=== PATIENT | female | born 1975 | race Caucasian/White ===

== ENCOUNTER 2019-12-16 12:09 | Outpatient (CLI) | payer BC, SELFPAY ==
--- NOTE | ~2019-12-16 | MM_ITS ---
EXAMINATION: MM diagnostic maximiliano RT w chauncey HISTORY: Follow-up right breast asymmetry TECHNIQUE: Additional 3-D tomosynthesis images of the right breast were performed and synthetic 2-D i mages were generated. CAD analysis was submitted and interpreted. COMPARISON: Comparison to multiple prior studies sequentially, with oldest reviewed study dated 10/02. FINDINGS: Breast composed of scattered areas of fibroglandular density. The right breast is stable wi thout evidence for malignancy. Asymmetries in the lower inner quadrant of the right breast are stable and less dense with spot compression views, compatible with superimposed fibroglandular tissue. IMPRESSION: 1. No mammographic evidence for malignancy in the right breast. 2. Routine yearly screening mammogram and regular clinical breast examination are recommended. BI-RADS Category 1: Negative Reviewed, dictated and finalized at location A. IMPRESSION: 1. No mammographic evidence for malignancy in the right breast. 2. Routine yearly screening mammogram and regular clinical breast examination a re recommended. BI-RADS Category 1: Negative
== END 2019-12-16 12:10 | disposition home or self-care (01) ==
LOC: ANHIMG 12:13
PROVIDERS: PCP Obstetrics & Gynecology Gynecology; Visit Provider Obstetrics & Gynecology Gynecology
DX: R92.8 Other abnormal and inconclusive findings on diagnostic imaging of breast (principal)
CPT/HCPCS: 77061; 77065; G0279

== ENCOUNTER → 2020-06-08 18:17 | Outpatient (CLI) | payer BC, SELFPAY ==
--- NOTE | ~2020-06-08 | MM_ITS ---
EXAMINATION: MM screening maximiliano BI w chauncey HISTORY: Screening mammogram TECHNIQUE: Craniocaudal and mediolateral oblique 3-D tomosynthesis images were obtained and synthetic 2-D images were generated. CAD analysis was submitted and interpreted. COMPARISON: 12/16/2019 right diagnostic mammogram 05/28/2019 right diagnostic mammogram and limited right breast ultrasound 05/15/2019, 04/21/2018, 11/17/2014 bilateral digital screening mammogram examinations BREAST PARENCHYMAL COMPOSITION: There are scattered areas of fibroglandular density. FINDINGS: There is no evidence of suspicious mass, calcification, or architectural distortion to sugg est malignancy in either breast. There has been no suspicious interval change. IMPRESSION: 1. No mammographic evidence of malignancy. 2. Recommend routine screening mammography in one year. BI-RADS Category 1: Negative Reviewed, dictated and finalized at location A. MOLOGY TECHNICAL OFFICER
== END ==
PROVIDERS: Visit Provider Nurse Practitioner
DX: Z12.31 Encounter for screening mammogram for malignant neoplasm of breast (principal)
CPT/HCPCS: 77063; 77067

== ENCOUNTER → 2021-07-13 13:53 | Outpatient (CLI) | payer BC, SELFPAY ==
--- NOTE | ~2021-07-13 | MM_ITS ---
EXAMINATION: MM screening [facility] BI w chauncey HISTORY: Screening mammogram TECHNIQUE: Craniocaudal and mediolateral oblique 3-D tomosynthesis images were obtained and synthetic 2-D images were generated. CAD analysis was submitted and interpreted. COMPARISON: 06/08/2020, 12/16/2019, 05/28/2019, 05/15/2019 BREAST PARENCHYMAL COMPOSITION: There are scattered areas of fibroglandular density. FINDINGS: There is no evidence of suspicious mass, calcification, or architectural distortion to sugg est malignancy in either breast. There has been no suspicious interval change. IMPRESSION: 1. No mammographic evidence of malignancy. 2. Recommend routine screening mammography in one year. BI-RADS Category 1: Negative Reviewed, dictated and finalized at location A. TAL TECHNICIAN
== END ==
PROVIDERS: PCP Internal Medicine; Visit Provider Nurse Practitioner
DX: Z12.31 Encounter for screening mammogram for malignant neoplasm of breast (principal)
CPT/HCPCS: 77063; 77067

== ENCOUNTER → 2022-09-04 13:45 | Outpatient (CLI) | payer BC, SELFPAY ==
--- NOTE | ~2022-09-04 | MM_ITS ---
EXAMINATION: MM screening maximiliano BI w chauncey HISTORY: Screening mammogram TECHNIQUE: Craniocaudal and mediolateral oblique 3-D tomosynthesis images were obtained and synthetic 2-D images were generated. CAD analysis was submitted and interpreted. COMPARISON: 07/13/2021, 06/08/2020 bilateral screening mammogram examinations BREAST PARENCHYMAL COMPOSITION: There are scattered areas of fibroglandular density. FINDINGS: There is no evidence of suspicious mass, calcification, or architectural distortion to sugg est malignancy in either breast. There has been no suspicious interval change. IMPRESSION: 1. No mammographic evidence of malignancy. 2. Recommend routine screening mammography in one year. BI-RADS Category 1: Negative Reviewed, dictated and finalized at location A. RNMENT PROPERTY INSPECTOR
== END ==
PROVIDERS: PCP Nurse Practitioner Family; Visit Provider Nurse Practitioner
DX: Z12.31 Encounter for screening mammogram for malignant neoplasm of breast (principal)
CPT/HCPCS: 77063; 77067

== ENCOUNTER → 2023-07-17 13:04 | Outpatient (CLI) | payer BC, SELFPAY ==
--- NOTE | ~2023-07-17 | US_ITS ---
EXAMINATION: US pelvic complete DATE: 07/17/2023 INDICATION: Abnormal uterine bleeding. TECHNIQUE: Multiple transabdominal sonographic images of the pelvis were obtained. COMPARISON: Pelvis ultrasound 11/20/2014 FINDINGS: The uterus measures 10.0 x 4.2 x 5.8 cm. There is no free fluid in the pelvis. The endometrial comple x measures 12 mm in thickness. The right ovary measures 3.0 x 1.7 x 2.0 cm. The left ovary measures 3 .0 x 1.8 x 2.2 cm. There is normal vascular flow in the ovaries. IMPRESSION: 1. Normal pelvis. Reviewed, dictated and finalized at location A. NG PICTURE PRODUCER IMPRESSION: 1. Normal pelvis.
== END ==
PROVIDERS: PCP Nurse Practitioner; Visit Provider Nurse Practitioner
DX: N92.1 Excessive and frequent menstruation with irregular cycle (principal); N93.8 Other specified abnormal uterine and vaginal bleeding
CPT/HCPCS: 76856

== ENCOUNTER 2023-09-09 00:30 | Day surgery (SDC) | payer BC, SELFPAY ==
[2023-09-03 15:08] VITALS: BMI 35.9
--- NOTE | 2023-09-03 15:15 | PC.NURSE ---
Report to the Outpatient Waiting Room, entrance under the green pavilion located off [facility], at time 1030 on date 09/09/23. Planned Procedure Time: 1230. Time changes happen often and if your time is changed the preop area will call you the afternoon before. - You and your visitor will be asked to self-screen and do not enter if you have any COVID symptoms. - A mask is optional within the hospital at this time. Patients may have clear liquids (water, carbonated beverages, clear teas, apple juice) until 3 hours prior to surgery with a maximum of 20 ounces. - No food from midnight until time of surgery Take the following medications with a SIP of water the morning of surgery: BUPROPION, CONTROL, LEVOTHYROXINE DO NOT STOP ANY OF YOUR OTHER PRESCRIPTION MEDICATIONS PRIOR TO SURGERY ?EXCEPT THE FOLLOWING Medications to discontinue per physician: N/A Date to take last dose: N/A Please no make-up, nail latvian, hairspray, perfume, deodorant, or body powder the day of surgery. No jewelry (including any body piercings) or valuables the day of surgery, leave them at home. Please take a shower or bath the night before, or the morning of, surgery with an antibacterial soap. Wear comfortable, loose fitting clothing. - Jewelry must be removed prior to entering the operating room. Rings and piercings that are not removed may be cut off. - The hospital will not accept responsibility for valuables. - Please leave all valuables, including medications, at home the day of surgery. If you are going home after surgery, a licensed septic pump truck driver must drive you home. - NO public transportation without another adult if you receive anesthesia. - We recommend that an adult stay with you for 24 hours following discharge. - We also recommend that you do not drive, make important decision, drink alcoholic beverages, or take any drugs that were not prescribed by your health care provider for at least 24 hours after your discharge time. Follow any additional instructions given to you from your surgeon. If you or anyone in your household have experienced Covid symptoms in the past week, please notify your surgeon or the nurse liaison at the phone number below for possible testing. Telephone instructions given to PT - NAM LAWRENCE and asked if any additional questions and then verbalized understanding. Patient advised to call surgeon office or pre surgery nurse liaison [phone] if any additional questions.
--- NOTE | 2023-09-09 08:04 | P.HP_ITS ---
History of Present Illness History of Present Illness Consent: Risks, benefits, and alternatives have been discussed and questions answered. Patient agrees to proceed with procedure. Chief complaint: fibroids Narrative: Rosana Garza is a 48 year old female with menorrhagia. Patient underwent pelvic ultrasound which revealed no fibroids. Office hysteroscopy was performed and there was a large fibroid filling the majority of the cavity. It was recommended to undergo D&C hysteroscopy with myomectomy in the operating room with the resection device. Risks of infection, bleeding, perforation, fluid imbalance, and possible pathology are reviewed. Possibility of needing a 2nd procedure due to the large size of the fibroid was also reviewed. Patient voices understanding and agrees to proceed. Review of Systems Review of Systems: not repeated day of surgery; patient states no changes in status PMFSH Past Medical History Medical History (Updated 09/09/23 @ 08:08 by Katarina Colbert MD) Anxiety Hypothyroid (normal spontaneous vaginal delivery) Surgical History Surgical History (Updated 09/09/23 @ 08:07 by Katarina Colbert MD) History of appendectomy and removal of ovarian cyst during and exploratory laparotomy 1989 History of History of cholecystectomy Social History Social History Years smoked: 4 Smoking status: Former smoker Tobacco type: cigarettes Smoking end date: 07/08/97 Alcohol intake: current Alcohol use details: VERY RARE Substance use: never Substance use type: does not use Living arrangements: with family Spiritual care concerns: No Meds Home Medications and Allergies Home Medications Medication Instructions Recorded Confirmed Type bupropion HCl 300 mg 24 hr tablet, 300 mg PO DAILY 09/03/23 09/03/23 History extended release levonorgestrel-ethinyl estradiol 1 tablet PO DAILY 09/03/23 09/03/23 History 0.1 mg-20 mcg tablet (Vienva) levothyroxine 25 mcg tablet 25 mcg PO DAILY 09/03/23 09/03/23 History lisinopril 10 mg tablet 10 mg PO DAILY 09/03/23 09/03/23 History pantoprazole 40 mg tablet,delayed 40 mg PO HS 09/03/23 09/03/23 History release Allergies Allergy/AdvReac Type Severity Reaction Status Date / Time Penicillins Allergy Unknown Hives Verified 09/03/23 15:06 Exam Const: General: healthy appearing and alert Orientation/consciousness: pa tient oriented x3 Resp: Effort & Inspection: normal respiratory effort : External Female Exam: normal external appearance Speculum Exam - Vagina: normal appearance of the vagina and normal vaginal discharge Speculum Exam - Cervix: normal appearance of the cervix Bimanual exam- vagina & uterus: uterine size normal and consistency normal Bimanual Exam- Adnexa, other: normal adnexae and No adnexal tenderness Neuro: General: patient oriented x3 Assessment and Plan Assessment and plan (1) Menorrhagia: Code(s): N92.0 - Excessive and frequent menstruation with regular cycle Status: Acute (2) Fibroids, submucosal: Code(s): D25.0 - Submucous leiomyoma of uterus Status: Acute Assessment and Plan: plan to proceed with hysteroscopic myomectomy
--- NOTE | 2023-09-09 08:04 | WPDHPUPDATE1 ---
History and Physical Update Update Date/Time: 09/09/23 08:04 History and Physical has been reviewed, including an updated exam of the patient. There are NO changes in the patient's condition. Risks, benefits, and alternatives have been discussed and questions answered. Patient agrees to proceed with procedure.
--- NOTE | 2023-09-09 08:27 | P.PNAN_ITS ---
Anes - Initial Pre Proc Eval Procedure: Operation Date: 09/09/23 12:30 Proposed Procedures p Hysteroscopy with Myomectomy - Katarina Colbert MD Date/Time: 09/09/23 08:27 Surgeon: Katarina Colbert MD Pre Op Diagnosis: fibroids Patient Data Age: 48 Gender: F Height: 1.6 m Weight: 92.1 kg Allergies Allergy/AdvReac Type Severity Reaction Status Date / Time Penicillins Allergy Unknown Hives Verified 09/09/23 10:48 Home Medications Medication Instructions Recorded Confirmed Type bupropion HCl 300 mg 24 hr tablet, 300 mg PO DAILY 09/03/23 09/03/23 History extended release levonorgestrel-ethinyl estradiol 1 tablet PO DAILY 09/03/23 09/03/23 History 0.1 mg-20 mcg tablet (Vienva) levothyroxine 25 mcg tablet 25 mcg PO DAILY 09/03/23 09/03/23 History lisinopril 10 mg tablet 10 mg PO DAILY 09/03/23 09/03/23 History pantoprazole 40 mg tablet,delayed 40 mg PO HS 09/03/23 09/03/23 History release Patient hx anesthesia problems: none Family hx anesthesia problems: none Results Review: All pre-operative results and documents have been reviewed as part of the pre- operative evaluation. [facility] Past Medical History Medical History (Updated 09/09/23 @ 08:28 by Roberto Head DO) Anxiety Hypertension Hypothyroid (normal spontaneous vaginal delivery) TOM (obstructive sleep apnea) no CPAP Surgical History Surgical History (Updated 09/09/23 @ 08:07 by Katarina Colbert MD) History of appendectomy and removal of ovarian cyst during and exploratory laparotomy 1989 History of History of cholecystectomy Social History Social History Years smoked: 4 Smoking status: Former smoker Tobacco type: cigarettes Smoking end date: 07/08/97 Alcohol intake: current Alcohol use details: VERY RARE Substance use: never Substance use type: does not use Living arrangements: with family Spiritual care concerns: No Anes - Eval Final PreProcedure Day of Procedure 09/09/23 08:27 Patient weight: obese Heart: regular rate and rhythm Lungs: clear to auscultation Airway: Mallampati scale class II Neurological: alert and oriented Last oral intake: >/= 8 hours ASA classification: III Emergent: no Anesthetic plan: proceed Anesthesia type and monitoring: general GIVS and standard monitoring Results Review: All pre-operative results and documents have been reviewed as part of the pre- operative evaluation. Informed Consent: The patient's anesthetic plan and its attendant risks and benefits were discussed with the patient/family/POA. Questions were solicited and answers provided to the satisfaction of the patient/family/POA.
[2023-09-09] MEDS: ACETAMINOPHEN 500 MG TABLET 1000 MG PO (10:51)
[2023-09-09 11:14] VITALS: BP 144/85; PULSE 82; RESP 16; TEMP 36.7; O2SAT 100
[2023-09-09] MEDS: LACTATED RINGERS 1,000 ML 30 ML IV CONT (11:17)
[2023-09-09 11:53] VITALS: BP 118/66; PULSE 78; RESP 18; O2SAT 99
--- NOTE | 2023-09-09 11:53 | W.PM.PROC2 ---
Procedure Note - Detailed Date of Procedure 09/09/23 Pre-op Diagnosis menorrhagia, fibroids Post-op Diagnosis Same Procedure Performed D&C hysteroscopy with hysteroscopic myomectomy Surgeon Katarina Colbert MD Anesthesia MAC Findings uterus sounds to 8cm large fibroid arising from the right uterine wall Description of Procedure The patient is taken to the operating room and placed under anesthesia in the dorsal lithotomy position. She was prepped and draped in usual sterile fashion. Bayard speculum was placed in the vagina and the cervix grasped on the anterior lip with a tenaculum. The uterus is sounded to 8cm. The cervix is serially dilated to a 6 Hegar. The Aveeta Lisa hysteroscope was placed and with the above-stated findings the Wave resection device is placed through the hysteroscope. Under direct visualization the fibroid is removed in its entirety. The hysteroscope was then removed and the OO sharp curette is used to curette the endometrium until a good uterine cry was noted in all areas. All instruments are removed. Sponge, needle, and instrument counts are correct per the OR staff. The patient was awakened from anesthesia and taken to recovery in stable condition. Estimated Blood Loss 5 Drains No Packing No Pathology Yes ( Endometrial shavings and curettings) Complications No immediate complications Condition Stable Disposition PACU
[2023-09-09 12:20] VITALS: BP 114/60; PULSE 74; RESP 16
[2023-09-09 12:50] VITALS: BP 127/73; PULSE 82; RESP 16
== END 2023-09-09 13:00 | disposition home or self-care (01) ==
PROVIDERS: Referring Provider Nurse Practitioner; Visit Provider Obstetrics & Gynecology Gynecology
PROC: 0U5B8ZZ Destruction of Endometrium, Via Natural or Artificial Opening Endoscopic (ICD-10-PCS; CPT 58563; principal; 2023-09-09 12:30)
DX: D25.9 Leiomyoma of uterus, unspecified (principal); N92.0 Excessive and frequent menstruation with regular cycle; I10 Essential (primary) hypertension; E03.9 Hypothyroidism, unspecified; G47.33 Obstructive sleep apnea (adult) (pediatric); F41.9 Anxiety disorder, unspecified; E66.9 Obesity, unspecified; Z68.35 Body mass index [BMI] 35.0-35.9, adult
CPT/HCPCS: 58561; 88305; A9270; J2250; J2704; J3010; J7120

== ENCOUNTER 2024-01-23 12:16 | Outpatient (CLI) | payer BC, SELFPAY ==
--- NOTE | ~2024-01-23 | MM_ITS ---
EXAMINATION: MM screening [facility] BI w chauncey HISTORY: Screening TECHNIQUE: Craniocaudal and mediolateral oblique 3-D tomosynthesis images were obtained and synthetic 2-D images were generated. CAD analysis was submitted and interpreted. COMPARISON: Comparison to multiple prior studies sequentially, with oldest reviewed study dated 02/2019. BREAST PARENCHYMAL COMPOSITION: Not dense: There are scattered areas of fibroglandular density. FINDINGS: Stable benign-appearing low-density mass in the lower outer quadrant of the right breast an teriorly. There is no evidence of suspicious mass, calcification, or architectural distortion to sugg est malignancy in either breast. There has been no suspicious interval change. IMPRESSION: 1. No mammographic evidence of malignancy. 2. Recommend routine screening mammography in one year. BI-RADS CATEGORY 2 - BENIGN FINDINGS Reviewed, dictated and finalized at location B.
== END 2024-01-23 12:17 ==
PROVIDERS: PCP Obstetrics & Gynecology Gynecology; Visit Provider Nurse Practitioner Family
DX: Z12.31 Encounter for screening mammogram for malignant neoplasm of breast (principal)
CPT/HCPCS: 77063; 77067

== ENCOUNTER 2024-06-06 10:10 | Emergency (ER) | payer BC, SELFPAY ==
[2024-06-06 10:19] VITALS: BP 155/87; PULSE 94; RESP 16; TEMP 36.6; O2SAT 100
--- NOTE | 2024-06-06 10:23 | ED.URI ---
HPI - URI/Sore Throat General Chief Complaint: Dental/Oral Stated Complaint: Sore Throat/Neck Pain Time Seen by Provider: 06/06/24 10:25 Source: patient Mode of arrival: ambulatory Limitations: no limitations History of Present Illness HPI Narrative: Rosana is a 49-year-old female patient presenting to the clinic today with complaints neck swelling. She reports symptoms started around 4:00 a.m. this morning. States that she vomited couple times this morning and felt fine after she vomited but woke up and had some neck swelling and having difficulty swallowing. Feels as though her tongue may be swelling. She does take lisinopril 10 mg daily. Has been taking this for about 2 years. Denies any fever, chills, or body aches. Is able to speak in full sentences-- no obvious sign of drooling. Related Data Home Medications Medication Instructions Recorded Confirmed bupropion HCl 300 mg 24 hr tablet, 300 mg PO DAILY 09/03/23 09/03/23 extended release levonorgestrel-ethinyl estradiol 1 tablet PO DAILY 09/03/23 09/03/23 0.1 mg-20 mcg tablet (Vienva) levothyroxine 25 mcg tablet 25 mcg PO DAILY 09/03/23 09/03/23 lisinopril 10 mg tablet 10 mg PO DAILY 09/03/23 09/03/23 pantoprazole 40 mg tablet,delayed 40 mg PO HS 09/03/23 09/03/23 release Allergies Allergy/AdvReac Type Severity Reaction Status Date / Time Penicillins Allergy Unknown Hives Verified 09/09/23 10:48 Review of Systems Review of Systems: Pertinent positives per HPI. Patient denies any fever, chills, rash, headache, visual changes, dizziness, cough, runny nose, sore throat, shortness of breath, chest pain, palpitations, nausea, vomiting, diarrhea, constipation, abdominal pain, or any urinary issues. [facility] Past Medical History Medical History Anxiety Hypertension Hypothyroid (normal spontaneous vaginal delivery) TOM (obstructive sleep apnea) no CPAP Surgical History Surgical History History of appendectomy and removal of ovarian cyst during and exploratory laparotomy 1989 History of History of cholecystectomy Social History Social History Years smoked: 4 Smoking status: Former smoker Tobacco type: cigarettes Smoking end date: 07/08/97 Alcohol intake: current Alcohol use details: VERY RARE Substance use: never Substance use type: does not use Living arrangements: with family Spiritual care concerns: No Comments At the time of my signature, I reviewed and agree with the nursing past medical, surgical, social, and family history. There is no relevant family history pertinent to the patient complaint. Exam Narrative: General: Well-developed, well nourished, in no apparent distress Head: Normocephalic, atraumatic Eyes: Pupils equally round and reactive to light bilaterally, EOM intact, sclera and conjunctive clear, no discharge, lids normal Ears: TMs intact and clear, ear canals clear, no drainage, grossly hearing normal. Nose: Nares patent, no discharge, no inflammation, no sinus tenderness. Mouth: Oropharynx red without lesions or masses, good dentition, MMM. Mild tongue swelling, even rise and fall the uvula, no drooling, no muffling in voice Neck: Supple, trachea midline, swelling of the anterior neck, tenderness to palpation, no enlargement of anterior or posterior cervical nodes, no thyroid masses or goiter palpable. No obvious drooling Cardio: Regular rate and rhythm, s1 and s2 normal, no murmur appreciated. Resp: Clear to auscultation bilaterally anteriorly and posteriorly, no rhonchi, rales, wheezing or rubs Course Course Emergency Course: Portions of this record may have been created with voice recognition software. Level of Care: Express Care Visit Vital Signs Vital signs: Vital Signs Temperature 36.6 C 06/06/24 10:19 Pulse Rate 94 06/06/24 10:19 Respiratory Rate 16 06/06/24 10:19 Blood Pressure 155/87 H 06/06/24 10:19 Pulse Oximetry 100 06/06/24 10:19 Temperature 36.6 C 06/06/24 10:19 Pulse Rate 94 06/06/24 10:19 Respiratory Rate 16 06/06/24 10:19 Blood Pressure 155/87 H 06/06/24 10:19 Pulse Oximetry 100 06/06/24 10:19 Vital signs reviewed MDM - URI/Sore Throat MDM Narrative Medical decision making narrative: At the time of visit patient is resting comfortably on the exam table. Patient appears to be nontoxic. Labs: Strep test was obtained and negative in the clinic today. Plan: I suspect patient has neck swelling/angioedema. Prescription for prednisone taper dose was sent to the pharmacy. If symptoms worsen patient is to go to the emergency room immediately. Will have her hold taking her lisinopril until seen by her primary care provider. Supportive measures were discussed with the patient and they voiced understanding discharge instructions and agrees to treatment plan. Return precautions reviewed Differential Diagnosis Differential diagnosis: Likely upper respiratory infection, croup, otitis media, sinusitis, viral infection, bronchitis, influenza, pharyngitis and other (Angioedema) Discharge Plan Discharge Clinical Impression: Neck swelling Angioedema Qualifiers: Encounter type: initial encounter Qualified Code(s): T78.3XXA - Angioneurotic edema, initial encounter Patient Disposition: Home, Self-Care Condition: Stable Instructions: Antibiotic Form, Angioedema (ED) Additional Instructions: Dexamethasone 10 mg IM given in the clinic today. Start prednisone as prescribed May take benadryl 25-50mg every 6 hours as needed for swelling Hold taking your lisinopril until you see your primary care provider. Follow up with your PCP on Saturday as scheduled. Go to the Emergency Room if symptoms worsen- fever, worsening swelling, shortness of breath, tongue swelling, drooling, or chest pain Prescriptions: New prednisone 10 mg tablet 10 mg PO DAILY Qty: 30 0RF Rx Instructions: 60mg po daily on day 1, 40mg po daily on days 2-4, 30mg po daily on days 5-6, 20mg po daily on days 7-8, 10mg po daily on days 9-10 No Action levonorgestrel-ethinyl estrad [Vienva] 0.1-20 mg-mcg tablet 1 tablet PO DAILY levothyroxine 25 mcg tablet 25 mcg PO DAILY pantoprazole 40 mg tablet,delayed release (DR/EC) 40 mg PO HS lisinopril 10 mg tablet 10 mg PO DAILY bupropion HCl 300 mg tablet extended release 24 hr 300 mg PO DAILY Follow-up/Referrals: Luke,Alesha Jane, SENIOR PRODUCT DEVELOPMENT MANAGER [Primary Care Provider] - Time of Disposition: 11:03 Quality NIHSS Nursing Documentation ED NIHSS nursing documentation: reviewed/agree
[2024-06-06 10:37] LABS: EDSTREPNEGPOS1 Negative (Negative)
[2024-06-06] MEDS: dexAMETHasone SOD PHOS INJ 10 MG/ML 1 ML VIAL IM (10:41)
== END 2024-06-06 11:12 | disposition home or self-care (01) ==
PROVIDERS: Emergency Provider Nurse Practitioner Family; PCP Nurse Practitioner Family
DX: R22.1 Localized swelling, mass and lump, neck (principal); T78.3XXA Angioneurotic edema, initial encounter; Z87.891 Personal history of nicotine dependence; I10 Essential (primary) hypertension; E03.9 Hypothyroidism, unspecified; F41.9 Anxiety disorder, unspecified
CPT/HCPCS: 87081; 87880; 96372; 99213; G0463; J1100